=== PATIENT | male | born 1935 | race African-American/Black ===

== ENCOUNTER → 2016-12-12 | Outpatient (CLI) | payer MEDICARE ==
[~2016-12-12] MED LIST: ALLO300T42 PO; AMLO5TAB2 PO; ASPI-496 PO; CEFD300C37 PO; CLON0.1T PO; CLON0.1T12 PO; CLON0.3T47 PO; COLC0.6T37 PO; EZET10TA3 PO; FURO-93 PO; FURO40TA6; GABA400C PO; GLIP10TA20 PO; HYDR-3240 PO; LISI-468 PO; METF500T27 PO; METO-95 PO; METO50TA82 PO; OXYC1TAB7 PO; POLY17PO5 PO; POTA10TA31 PO; PRAV10TA2 PO; PRED10TA PO; PRED20TA PO; SPIR25TA3 PO; TAMS-11 PO; TERA5CAP3 PO; TRAM-28 PO
[2016-12-12 11:40] LABS: PATH.CAST-FLAG NOT PRESENT; SPERM-FLAG NOT PRESENT; SRC-FLAG NOT PRESENT; XTAL-FLAG NOT PRESENT; YLC-FLAG NOT PRESENT
[2016-12-12 11:48] LABS: BLOOD UREA NITROGEN 26 mg/dL (7-18)
[2016-12-12 11:53] LABS: ASPARTATE AMINO TRANSFERASE 15 U/L (15-37)
[2016-12-12 12:01] LABS: DIFF TOTAL CELLS COUNTED 100 CELL DIFF
[2016-12-12 12:06] LABS: ANISOCYTOSIS 1+; POIKILOCYTOSIS 1+; VERIFY COUNTS? YES
[2016-12-12 12:07] LABS: SPHEROCYTES 1+
== END | disposition home or self-care (01) ==
LOC: LAB 11:05
PROVIDERS: ATTEND Internal Medicine Nephrology
DX: I12.9 Hypertensive chronic kidney disease with stage 1 through stage 4 chronic kidney disease, or unspecified chronic kidney disease (principal); D63.1 Anemia in chronic kidney disease; N18.3 Chronic kidney disease, stage 3 (moderate); E87.2 Acidosis; E55.9 Vitamin D deficiency, unspecified; G47.30 Sleep apnea, unspecified; Q89.3 Situs inversus
CPT/HCPCS: 36415; 80053; 81001; 82306; 82570; 82728; 84100; 84156; 84550; 85025

== ENCOUNTER → 2017-07-08 | Outpatient (CLI) | payer MEDICARE ==
[~2017-07-08] MED LIST changes: -ALLO300T42 PO; +ALLO300T80 PO; +EZET10TA18 PO; -EZET10TA3 PO; +GLIP-164 PO; -GLIP10TA20 PO; +REGADENOSON 0.4 MG/5 ML SYRINGE ONE; -TRAM-28 PO; +TRAM-47 PO
== END | disposition home or self-care (01) ==
LOC: CVU 09:56
PROVIDERS: ATTEND Internal Medicine Cardiovascular Disease
DX: Z01.810 Encounter for preprocedural cardiovascular examination (principal)
CPT/HCPCS: 78452; 93017; 93306; A9502; J2785

== ENCOUNTER 2018-03-10 16:58 | Inpatient (IN) | payer MEDICARE ==
[~2018-03-10] VITALS: Ht 167.6 cm; Wt 157.2 kg
[~2018-03-10 16:58] MED LIST changes: -AMLO5TAB2 PO; +AMLO5TAB7 PO; -REGADENOSON 0.4 MG/5 ML SYRINGE ONE; -SPIR25TA3 PO; +SPIR25TA5 PO
[2018-03-10] MEDS ORDERED: SODIUM CHLORIDE FLUSH 10ML SYR IVF ONE (17:30)
[2018-03-10 18:52] LABS: PROTHROMBIN TIME 10.4 Seconds (9.6-11.5)
[2018-03-10 18:54] LABS: ALBUMIN 3.2 g/dL (3.4-5.0); ANION GAP 9 mmol/L (5-15); CALCIUM 7.6 mg/dL (8.5-10.1); CHLORIDE 103 mmol/L (98-107); MEAN CORPUSCULAR HEMOGLOBIN 30.1 pg (27.5-34.5); MEAN CORPUSCULAR HGB CONC 33.3 g/dL (33.2-36.2); MEAN CORPUSCULAR VOLUME 90.4 fL (81-97); MEAN PLATELET VOLUME 9.6 fL (7.4-10.4); PLATELET COUNT 197 x10^3/uL (130-400); RED BLOOD COUNT 3.48 x10^6/uL (4.38-5.82); RED CELL DISTRIBUTION WIDTH 17.7 % (9.4-14.8)
[2018-03-10 18:59] LABS: ALANINE AMINOTRANSFERASE 39 U/L (12-78); ALKALINE PHOSPHATASE 73 U/L (45-117); BILIRUBIN,TOTAL 0.7 mg/dL (0.2-1.0); TOTAL PROTEIN 6.9 g/dL (6.4-8.2); TROPONIN I 0.028 ng/mL (0.000-0.045)
[2018-03-10] MEDS ORDERED: ALLO300T PO (19:00)
[2018-03-10] MEDS ORDERED: FINA5TAB4 PO (19:00)
[2018-03-10] MEDS ORDERED: ASPI-496 PO (19:00)
[2018-03-10] MEDS ORDERED: CLON0.1T PO (19:00)
[2018-03-10] MEDS ORDERED: LOSA50TA7 PO (19:00)
[2018-03-10] MEDS ORDERED: PRAV80TA2 PO (19:00)
[2018-03-10] MEDS ORDERED: SODIUM BICARBONATE PO (19:00)
[2018-03-10] MEDS ORDERED: TERA5CAP3 PO (19:00)
[2018-03-10 19:08] LABS: MD YES
[2018-03-10 19:16] LABS: BAND#(MANUAL) 0.06 x10^3/uL; BANDS%(MANUAL) 1 % (0-7); BASOS#(MANUAL) 0.11 x10^3/uL (0-0.1); BASOS% (MANUAL) 2 % (0-1); LYMPH#(MANUAL) 1.03 x10^3/uL (1-3.4); LYMPHS% (MANUAL) 18 % (22-44); MONOS#(MANUAL) 0.29 x10^3/uL (0.3-2.7); MONOS% (MANUAL) 5 % (2-9); SEG#(MANUAL) 4.22 x10^3/uL (1.8-6.8); SEGS% (MANUAL) 74 % (42-75)
[2018-03-10 19:17] LABS: ANISOCYTOSIS 1+; HYPOCHROMIA 1+
[2018-03-10 19:18] LABS: <PLATELET ESTIMATE> ADEQUATE; <PLT MORPHOLOGY> NORMAL PLT MORPH; OVALOCYTES 1+; TARGET CELLS 1+
[2018-03-10] MEDS ORDERED: ACETAMINOPHEN 325 MG TABLET PO PRN (21:00)
[2018-03-10] MEDS ORDERED: ONDANSETRON ODT 4 MG PO PRN (21:00)
[2018-03-10] MEDS ORDERED: DOCUSATE 100 MG CAPSULE PO PRN (21:00)
[2018-03-10] MEDS ORDERED: hydrALAzine 20 MG/ML, 1ML IVPush PRN (21:00)
[2018-03-10] MEDS ORDERED: TEMAZEPAM 15 MG CAPSULE PO PRN (21:00)
[2018-03-10 21:21] LABS: FREE T4 (FREE THYROXINE) 0.91 ng/dL (0.76-1.46); THYROID STIMULATING HORMONE 6.79 mIU/L (0.358-3.740)
[2018-03-10 21:54] LABS: HEMOGLOBIN A1C 5.6 % (4.2-6.3)
[2018-03-10 22:24] VITALS: BP 158/92
[2018-03-10] MEDS: SODIUM CHLORIDE 0.9% 1,000 ML IV SCH (22:43)
[2018-03-10] MEDS: PRAVASTATIN 40 MG TABLET PO SCH (22:43)
[2018-03-10] MEDS: SODIUM BICARBONATE 650 MG TABLET PO SCH (22:43)
[2018-03-11] VITALS (7 sets, daily range): BP systolic 101–164; BP diastolic 42–84
[2018-03-11] MEDS ORDERED: MAGNESIUM SULFATE PMX 2GM/50ML 50 ML IV ONE (01:00)
[2018-03-11 01:11] LABS: TROPONIN I 0.035 ng/mL (0.000-0.045)
[2018-03-11] MEDS ORDERED: ASPIRIN 81 MG TABLET EC PO SCH (06:00)
[2018-03-11 06:38] LABS: MEAN CORPUSCULAR HEMOGLOBIN 29.4 pg (27.5-34.5); MEAN CORPUSCULAR HGB CONC 32.5 g/dL (33.2-36.2); MEAN CORPUSCULAR VOLUME 90.4 fL (81-97); MEAN PLATELET VOLUME 8.9 fL (7.4-10.4); PLATELET COUNT 181 x10^3/uL (130-400); RED BLOOD COUNT 3.13 x10^6/uL (4.38-5.82); RED CELL DISTRIBUTION WIDTH 17.8 % (9.4-14.8)
[2018-03-11 06:47] LABS: ANION GAP 8 mmol/L (5-15); CALCIUM 7.4 mg/dL (8.5-10.1); CHLORIDE 105 mmol/L (98-107); CREATININE 2.69 mg/dL (0.7-1.3)
[2018-03-11 07:01] LABS: TROPONIN I 0.045 ng/mL (0.000-0.045)
[2018-03-11 08:19] LABS: MD YES
[2018-03-11] MEDS ORDERED: LOSARTAN 50MG TABLET PO SCH (09:00)
[2018-03-11] MEDS ORDERED: ALLOPURINOL 300 MG TABLET PO SCH (09:00)
[2018-03-11 09:02] LABS: SEG#(MANUAL) 4.48 x10^3/uL (1.8-6.8); SEGS% (MANUAL) 83 % (42-75)
[2018-03-11 09:03] LABS: BAND#(MANUAL) 0.05 x10^3/uL; BANDS%(MANUAL) 1 % (0-7)
[2018-03-11 09:07] LABS: EOS#(MANUAL) 0.05 x10^3/uL (0.0-0.4); EOS% (MANUAL) 1 % (1-7); LYMPH#(MANUAL) 0.76 x10^3/uL (1-3.4); LYMPHS% (MANUAL) 14 % (22-44); METAMYELOCYTES# (MANUAL) 0.05 x10^3/uL (0-0); METAMYELOCYTES% (MANUAL) 1 % (0-1)
[2018-03-11 09:08] LABS: <PLATELET ESTIMATE> ADEQUATE; <PLT MORPHOLOGY> NORMAL PLT MORPH; ANISOCYTOSIS 1+; HYPOCHROMIA 1+; POLYCHROMASIA 1+
[2018-03-11] MEDS: FINASTERIDE 5 MG TABLET PO SCH (09:49)
[2018-03-11] MEDS: SODIUM BICARBONATE 650 MG TABLET PO SCH ×2 (09:49→20:21)
[2018-03-11] MEDS: TERAZOSIN 5MG CAPSULE PO SCH (09:50)
[2018-03-11] MEDS ORDERED: PHARMACY MAY ADJ FOR RENAL FX MC PRN (10:30)
[2018-03-11] MEDS: INSULIN LISPRO 100 UNITS/ML, PEN SQ-INSULIN SCH ×3 (11:00→20:22)
[2018-03-11] MEDS: HEPARIN 5,000 UNITS/ML, 1ML SQ SCH ×2 (11:13→17:14)
[2018-03-11 11:18] LABS: HEMOGLOBIN A1C 5.8 % (4.2-6.3)
[2018-03-11] MEDS: SODIUM CHLORIDE 0.9% 1,000 ML IV SCH (13:32)
[2018-03-11 14:16] LABS: MICROSCOPIC AUTO
[2018-03-11 14:32] LABS: CULTURE INDICATED? NO
[2018-03-11] MEDS: PRAVASTATIN 40 MG TABLET PO SCH (20:21)
[2018-03-12 00:23] VITALS: BP 143/75
[2018-03-12] MEDS: HEPARIN 5,000 UNITS/ML, 1ML SQ SCH ×2 (00:24→11:44)
[2018-03-12] MEDS: SODIUM CHLORIDE 0.9% 1,000 ML IV SCH (00:25)
[2018-03-12] MEDS ORDERED: ASPIRIN 81 MG TABLET EC PO SCH (06:00)
[2018-03-12 06:10] LABS: ANION GAP 10 mmol/L (5-15); CHLORIDE 107 mmol/L (98-107)
[2018-03-12 06:15] LABS: CHOL/HDL RATIO 1.4; CHOLESTEROL, TOTAL 180 mg/dL (140-239); CREATININE 2.27 mg/dL (0.7-1.3); HDL CHOL % 74 % (26-37); HDL CHOLESTEROL (DIRECT) 133 mg/dL (40-60); LDL CHOLESTEROL,CALCULATED 33 mg/dL (54-169); LDL/HDL RATIO 0.2 (0.5-3.0); TRIGLYCERIDES 72 mg/dL (50-200); VLDL CHOLESTEROL 14 mg/dL (0-25)
[2018-03-12 06:21] LABS: MEAN CORPUSCULAR HEMOGLOBIN 29.5 pg (27.5-34.5); MEAN CORPUSCULAR HGB CONC 32.6 g/dL (33.2-36.2); MEAN CORPUSCULAR VOLUME 90.4 fL (81-97); MEAN PLATELET VOLUME 10.2 fL (7.4-10.4); PLATELET COUNT 177 x10^3/uL (130-400); RED BLOOD COUNT 3.26 x10^6/uL (4.38-5.82); RED CELL DISTRIBUTION WIDTH 18.2 % (9.4-14.8)
[2018-03-12] MEDS: INSULIN LISPRO 100 UNITS/ML, PEN SQ-INSULIN SCH ×2 (07:00→11:00)
[2018-03-12 07:26] VITALS: BP 168/85
[2018-03-12 07:57] LABS: MD YES
[2018-03-12 08:15] LABS: ANISOCYTOSIS 1+; EOS#(MANUAL) 0.08 x10^3/uL (0.0-0.4); EOS% (MANUAL) 2 % (1-7); LYMPH#(MANUAL) 1.64 x10^3/uL (1-3.4); LYMPHS% (MANUAL) 40 % (22-44); MONOS#(MANUAL) 0.25 x10^3/uL (0.3-2.7); MONOS% (MANUAL) 6 % (2-9); OVALOCYTES 1+; SEG#(MANUAL) 2.13 x10^3/uL (1.8-6.8); SEGS% (MANUAL) 52 % (42-75)
[2018-03-12 08:16] LABS: <PLATELET ESTIMATE> ADEQUATE; <PLT MORPHOLOGY> NORMAL PLT MORPH; TARGET CELLS 1+
[2018-03-12] MEDS: SODIUM BICARBONATE 650 MG TABLET PO SCH (08:30)
[2018-03-12] MEDS: FINASTERIDE 5 MG TABLET PO SCH (08:30)
[2018-03-12] MEDS: TERAZOSIN 5MG CAPSULE PO SCH (08:30)
[2018-03-12 10:15] VITALS: BP 129/74
[2018-03-12] MEDS ORDERED: GLIP5TAB22 PO (12:38)
[2018-03-12] MEDS ORDERED: ASPI-621 PO (12:38)
[2018-03-12 13:28] VITALS: BP 122/67
== END 2018-03-12 15:24 | disposition home or self-care (01) | DRG 73 ==
LOC: EDBD 16:58 → ED 20:27 → EDIP 20:31 → 4WST 21:55 → DCLOUNGE 03-12 15:15
PROVIDERS: ADMIT Hospitalist; ATTEND Hospitalist
DX: G90.8 Other disorders of autonomic nervous system (principal); N17.0 Acute kidney failure with tubular necrosis; I13.0 Hypertensive heart and chronic kidney disease with heart failure and stage 1 through stage 4 chronic kidney disease, or unspecified chronic kidney disease; Z68.43 Body mass index [BMI] 50.0-59.9, adult; E11.43 Type 2 diabetes mellitus with diabetic autonomic (poly)neuropathy; E11.21 Type 2 diabetes mellitus with diabetic nephropathy; E11.22 Type 2 diabetes mellitus with diabetic chronic kidney disease; E11.69 Type 2 diabetes mellitus with other specified complication; E66.01 Morbid (severe) obesity due to excess calories; E78.5 Hyperlipidemia, unspecified; E83.42 Hypomagnesemia; I48.91 Unspecified atrial fibrillation; I50.9 Heart failure, unspecified; N18.9 Chronic kidney disease, unspecified; N40.0 Benign prostatic hyperplasia without lower urinary tract symptoms; Z96.659 Presence of unspecified artificial knee joint; D64.9 Anemia, unspecified; Z86.73 Personal history of transient ischemic attack (TIA), and cerebral infarction without residual deficits; Z83.3 Family history of diabetes mellitus
CPT/HCPCS: 36415; 70450; 70551; 71045; 80048; 80053; 80061; 81001; 82962; 83036; 83735; 84439; 84443; 84484; 85025; 85610; 85730; 93005; 93306; 93880; 99285; G0378; J1644; J1815; J3475; J7030

== ENCOUNTER 2018-03-31 14:01 | Inpatient (IN) | payer MEDICARE ==
[~2018-03-31] VITALS: Ht 167.6 cm; Wt 136.7 kg
[~2018-03-31 14:01] MED LIST changes: +ALLO300T PO; +ASPI-621 PO; +FINA5TAB4 PO; +GLIP5TAB22 PO; +LOSA50TA7 PO; +PRAV80TA2 PO; +SODIUM BICARBONATE PO
[2018-03-31] MEDS ORDERED: DEXTROSE 50%, 50ML SYRINGE IVPush ONE (14:30)
[2018-03-31] MEDS ORDERED: DEXTROSE 50%, 50ML SYRINGE ONE (14:33)
[2018-03-31 14:55] LABS: CREATININE 2.59 mg/dL (0.7-1.3)
[2018-03-31 14:56] LABS: ALANINE AMINOTRANSFERASE 30 U/L (12-78); ALKALINE PHOSPHATASE 71 U/L (45-117); BILIRUBIN,TOTAL 0.4 mg/dL (0.2-1.0); TOTAL PROTEIN 8.2 g/dL (6.4-8.2)
[2018-03-31 15:01] LABS: ALBUMIN 3.6 g/dL (3.4-5.0); ANION GAP 11 mmol/L (5-15); CALCIUM 8.6 mg/dL (8.5-10.1); CHLORIDE 106 mmol/L (98-107)
[2018-03-31 15:11] LABS: MEAN CORPUSCULAR HEMOGLOBIN 29.5 pg (27.5-34.5); MEAN CORPUSCULAR HGB CONC 32.4 g/dL (33.2-36.2); MEAN PLATELET VOLUME 9.5 fL (7.4-10.4); PLATELET COUNT 307 x10^3/uL (130-400); RED BLOOD COUNT 3.98 x10^6/uL (4.38-5.82)
[2018-03-31] MEDS ORDERED: AMLO10TA6 PO (15:27)
[2018-03-31] MEDS ORDERED: FURO20TA3 PO (15:28)
[2018-03-31 15:55] LABS: MD YES
[2018-03-31 15:58] LABS: BAND#(MANUAL) 0.25 x10^3/uL; BANDS%(MANUAL) 3 % (0-7); LYMPHS% (MANUAL) 6 % (22-44); MONOS#(MANUAL) 0.59 x10^3/uL (0.3-2.7); MONOS% (MANUAL) 7 % (2-9); SEG#(MANUAL) 7.06 x10^3/uL (1.8-6.8); SEGS% (MANUAL) 84 % (42-75)
[2018-03-31 15:59] LABS: ANISOCYTOSIS 1+
[2018-03-31 16:00] LABS: OVALOCYTES 1+
[2018-03-31 16:01] LABS: <PLATELET ESTIMATE> ADEQUATE; <PLT MORPHOLOGY> NORMAL PLT MORPH
[2018-03-31] MEDS: DEXTROSE 10% 1,000 ML IV SCH ×2 (16:21→22:37)
[2018-03-31] MEDS ORDERED: SODIUM CHLORIDE 0.9% 1,000 ML IV SCH (16:23)
[2018-03-31] MEDS ORDERED: ONDANSETRON ODT 4 MG PO PRN (16:30)
[2018-03-31] MEDS ORDERED: ONDANSETRON 2MG/ML, 2ML IVPush PRN (16:30)
[2018-03-31] MEDS ORDERED: BISACODYL 10 MG SUPP PR PRN (16:30)
[2018-03-31] MEDS ORDERED: LABETALOL 5MG/ML, 20ML IVPush PRN (16:30)
[2018-03-31] MEDS ORDERED: hydrALAzine 20 MG/ML, 1ML IVPush PRN (16:30)
[2018-03-31] MEDS ORDERED: DOCUSATE 100 MG CAPSULE PO PRN (16:30)
[2018-03-31] MEDS ORDERED: DEXTROSE 4 GM TAB.CHEW PO PRN (16:30)
[2018-03-31] MEDS ORDERED: DEXTROSE 50%, 50ML SYRINGE IVPush PRN (16:30)
[2018-03-31] MEDS ORDERED: POLYETHYLENE GLYCOL 17 GM PACKET PO PRN (16:30)
[2018-03-31] MEDS ORDERED: GLUCAGON 1 MG IM PRN (16:30)
[2018-03-31] MEDS ORDERED: DEXTROSE 10% 1,000 ML IV SCH (17:00)
[2018-03-31 17:06] LABS: HEMOGLOBIN A1C 5.7 % (4.2-6.3)
[2018-03-31] MEDS: HEPARIN 5,000 UNITS/ML, 1ML SQ SCH (17:42)
[2018-03-31 17:45] VITALS: BP 143/66
[2018-03-31 19:24] VITALS: BP 105/69
[2018-03-31] MEDS: INSULIN LISPRO 100 UNITS/ML, PEN SQ-INSULIN SCH (21:00)
[2018-03-31] MEDS: SODIUM CHLORIDE FLUSH 10ML SYR IVF SCH (21:52)
[2018-04-01] MEDS: HEPARIN 5,000 UNITS/ML, 1ML SQ SCH ×3 (00:45→16:08)
[2018-04-01 01:25] VITALS: BP 135/78
[2018-04-01 05:12] LABS: MEAN CORPUSCULAR HEMOGLOBIN 29.9 pg (27.5-34.5); MEAN CORPUSCULAR HGB CONC 32.7 g/dL (33.2-36.2); MEAN CORPUSCULAR VOLUME 91.5 fL (81-97); MEAN PLATELET VOLUME 9.3 fL (7.4-10.4); PLATELET COUNT 244 x10^3/uL (130-400); RED BLOOD COUNT 3.21 x10^6/uL (4.38-5.82); RED CELL DISTRIBUTION WIDTH 18.6 % (9.4-14.8)
[2018-04-01 05:19] LABS: CHLORIDE 107 mmol/L (98-107)
[2018-04-01 05:24] LABS: ANION GAP 7 mmol/L (5-15); CALCIUM 7.8 mg/dL (8.5-10.1); CREATININE 2.57 mg/dL (0.7-1.3)
[2018-04-01 05:55] LABS: MD YES
[2018-04-01 05:56] LABS: EOS#(MANUAL) 0.12 x10^3/uL (0.0-0.4); EOS% (MANUAL) 2 % (1-7); LYMPH#(MANUAL) 1.24 x10^3/uL (1-3.4); LYMPHS% (MANUAL) 20 % (22-44); MONOS#(MANUAL) 0.43 x10^3/uL (0.3-2.7); MONOS% (MANUAL) 7 % (2-9); SEGS% (MANUAL) 71 % (42-75)
[2018-04-01 05:59] LABS: ANISOCYTOSIS 1+; HYPOCHROMIA 1+; OVALOCYTES 1+
[2018-04-01 06:01] LABS: <PLATELET ESTIMATE> ADEQUATE; <PLT MORPHOLOGY> NORMAL PLT MORPH
[2018-04-01] MEDS: ASPIRIN 81 MG TABLET EC PO SCH (06:36)
[2018-04-01] MEDS: INSULIN LISPRO 100 UNITS/ML, PEN SQ-INSULIN SCH ×4 (07:00→20:28)
[2018-04-01 07:20] VITALS: BP 150/79
[2018-04-01] MEDS: PRAVASTATIN 40 MG TABLET PO SCH (08:10)
[2018-04-01] MEDS: AMLODIPINE 10 MG TAB PO SCH (08:10)
[2018-04-01] MEDS: TERAZOSIN 5MG CAPSULE PO SCH (08:10)
[2018-04-01] MEDS: ALLOPURINOL 300 MG TABLET PO SCH (08:10)
[2018-04-01] MEDS: FINASTERIDE 5 MG TABLET PO SCH (08:10)
[2018-04-01] MEDS: SODIUM CHLORIDE FLUSH 10ML SYR IVF SCH ×2 (08:10→20:34)
[2018-04-01] MEDS: D5%-0.9% NACL 500 ML IV SCH (12:30)
[2018-04-01 13:00] VITALS: BP 138/65
[2018-04-01 13:09] VITALS: BP 103/64
[2018-04-01 18:32] VITALS: BP 143/82
[2018-04-01] MEDS: ACETAMINOPHEN 325 MG TABLET PO PRN (20:42)
[2018-04-02] MEDS: HEPARIN 5,000 UNITS/ML, 1ML SQ SCH ×3 (00:20→16:30)
[2018-04-02 01:00] VITALS: BP 152/68
[2018-04-02] MEDS: CARVEDILOL 3.125 MG TABLET PO SCH (05:20)
[2018-04-02] MEDS: ASPIRIN 81 MG TABLET EC PO SCH (05:20)
[2018-04-02 05:25] LABS: MEAN CORPUSCULAR HEMOGLOBIN 30.4 pg (27.5-34.5); MEAN CORPUSCULAR HGB CONC 33.1 g/dL (33.2-36.2); MEAN CORPUSCULAR VOLUME 91.7 fL (81-97); MEAN PLATELET VOLUME 9.8 fL (7.4-10.4); PLATELET COUNT 238 x10^3/uL (130-400); RED BLOOD COUNT 3.11 x10^6/uL (4.38-5.82); RED CELL DISTRIBUTION WIDTH 18.2 % (9.4-14.8)
[2018-04-02 05:31] LABS: ALBUMIN 2.6 g/dL (3.4-5.0); ANION GAP 9 mmol/L (5-15); CHLORIDE 110 mmol/L (98-107)
[2018-04-02 05:36] LABS: ALANINE AMINOTRANSFERASE 21 U/L (12-78); ALKALINE PHOSPHATASE 45 U/L (45-117); BILIRUBIN,TOTAL 0.5 mg/dL (0.2-1.0); CREATININE 2.29 mg/dL (0.7-1.3); TOTAL PROTEIN 6.2 g/dL (6.4-8.2)
[2018-04-02 05:58] LABS: MD YES
[2018-04-02 06:00] LABS: ANISOCYTOSIS 1+; EOS#(MANUAL) 0.05 x10^3/uL (0.0-0.4); EOS% (MANUAL) 1 % (1-7); HYPOCHROMIA 1+; LYMPHS% (MANUAL) 27 % (22-44); MONOS#(MANUAL) 0.29 x10^3/uL (0.3-2.7); MONOS% (MANUAL) 6 % (2-9); OVALOCYTES 1+; SEG#(MANUAL) 3.17 x10^3/uL (1.8-6.8); SEGS% (MANUAL) 66 % (42-75)
[2018-04-02 06:01] LABS: <PLATELET ESTIMATE> ADEQUATE; <PLT MORPHOLOGY> NORMAL PLT MORPH; TARGET CELLS 1+
[2018-04-02] MEDS: INSULIN LISPRO 100 UNITS/ML, PEN SQ-INSULIN SCH ×4 (07:00→20:57)
[2018-04-02] MEDS: D5%-0.9% NACL 500 ML IV SCH (07:00)
[2018-04-02] MEDS: SODIUM CHLORIDE FLUSH 10ML SYR IVF SCH ×2 (07:57→20:57)
[2018-04-02 09:49] VITALS: BP 149/69
[2018-04-02] MEDS: FINASTERIDE 5 MG TABLET PO SCH (10:06)
[2018-04-02] MEDS: TERAZOSIN 5MG CAPSULE PO SCH (10:06)
[2018-04-02] MEDS: AMLODIPINE 10 MG TAB PO SCH (10:06)
[2018-04-02] MEDS: PRAVASTATIN 40 MG TABLET PO SCH (10:06)
[2018-04-02] MEDS: ALLOPURINOL 300 MG TABLET PO SCH (10:06)
[2018-04-02 15:29] VITALS: BP 176/85
[2018-04-02 15:40] LABS: IRON LEVEL 109 mcg/dL (65-175)
[2018-04-02 15:42] LABS: % IRON SATURATION 54 % (20-55); TOTAL IRON BINDING CAPACITY 203 mcg/dL (250-450)
[2018-04-02 18:24] VITALS: BP 152/84
[2018-04-02] MEDS: ACETAMINOPHEN 325 MG TABLET PO PRN (23:02)
[2018-04-03] MEDS: HEPARIN 5,000 UNITS/ML, 1ML SQ SCH ×2 (00:09→08:30)
[2018-04-03 00:31] VITALS: BP 149/83
[2018-04-03] MEDS: ASPIRIN 81 MG TABLET EC PO SCH (05:37)
[2018-04-03] MEDS: CARVEDILOL 3.125 MG TABLET PO SCH (05:37)
[2018-04-03] MEDS: INSULIN LISPRO 100 UNITS/ML, PEN SQ-INSULIN SCH (06:42)
[2018-04-03 08:25] VITALS: BP 187/75
[2018-04-03] MEDS: SODIUM CHLORIDE FLUSH 10ML SYR IVF SCH (09:00)
[2018-04-03] MEDS: AMLODIPINE 10 MG TAB PO SCH (10:09)
[2018-04-03] MEDS: FINASTERIDE 5 MG TABLET PO SCH (10:09)
[2018-04-03] MEDS: ALLOPURINOL 300 MG TABLET PO SCH (10:09)
[2018-04-03] MEDS: PRAVASTATIN 40 MG TABLET PO SCH (10:09)
[2018-04-03] MEDS: TERAZOSIN 5MG CAPSULE PO SCH (10:09)
[2018-04-03] MEDS ORDERED: CARV3.12 PO (15:44)
[2018-04-03] MEDS ORDERED: AMLO5TAB4 PO (15:49)
== END 2018-04-03 11:10 | disposition home or self-care (01) | DRG 638 ==
LOC: ED 14:23 → EDIP 15:49 → INTOOBSV 15:49 → 3NE 16:42 → OBSVTOIN 04-02 14:51 → DCLOUNGE 04-03 10:52
PROVIDERS: ADMIT Family Medicine; ATTEND Family Medicine
DX: E11.649 Type 2 diabetes mellitus with hypoglycemia without coma (principal); I13.0 Hypertensive heart and chronic kidney disease with heart failure and stage 1 through stage 4 chronic kidney disease, or unspecified chronic kidney disease; Q24.0 Dextrocardia; Z68.43 Body mass index [BMI] 50.0-59.9, adult; E44.0 Moderate protein-calorie malnutrition; I50.30 Unspecified diastolic (congestive) heart failure; I48.2 Chronic atrial fibrillation; N18.4 Chronic kidney disease, stage 4 (severe); E11.22 Type 2 diabetes mellitus with diabetic chronic kidney disease; E78.5 Hyperlipidemia, unspecified; M10.9 Gout, unspecified; N40.0 Benign prostatic hyperplasia without lower urinary tract symptoms; Z86.73 Personal history of transient ischemic attack (TIA), and cerebral infarction without residual deficits; E66.01 Morbid (severe) obesity due to excess calories; D50.9 Iron deficiency anemia, unspecified; Z91.19 Patient's noncompliance with other medical treatment and regimen; Z79.84 Long term (current) use of oral hypoglycemic drugs; Z96.659 Presence of unspecified artificial knee joint; Z83.3 Family history of diabetes mellitus
CPT/HCPCS: 36415; 80048; 80053; 82962; 83036; 83540; 83550; 85025; 93005; 96374; 99285; G0378; J1644; J7042

== ENCOUNTER 2018-04-14 10:55 | Day surgery (SDC) | payer MEDICARE ==
[~2018-04-14] VITALS: Ht 167.6 cm; Wt 146.8 kg
[~2018-04-14 10:55] MED LIST changes: +AMLO10TA6 PO; +AMLO5TAB4 PO; +CARV3.12 PO; +FURO20TA3 PO
[2018-04-14] MEDS ORDERED: LIDOCAINE/PF 1%, 30ML ONE (11:51)
== END 2018-04-14 12:00 | disposition home or self-care (01) ==
LOC: CACL 10:55
PROVIDERS: ATTEND Internal Medicine Cardiovascular Disease
DX: Z45.09 Encounter for adjustment and management of other cardiac device (principal); I63.9 Cerebral infarction, unspecified; I12.9 Hypertensive chronic kidney disease with stage 1 through stage 4 chronic kidney disease, or unspecified chronic kidney disease; E11.22 Type 2 diabetes mellitus with diabetic chronic kidney disease; N18.9 Chronic kidney disease, unspecified; E78.2 Mixed hyperlipidemia; G47.33 Obstructive sleep apnea (adult) (pediatric); E66.01 Morbid (severe) obesity due to excess calories; Z79.82 Long term (current) use of aspirin; Z79.899 Other long term (current) drug therapy
CPT/HCPCS: 33282; C1764; J3490

== ENCOUNTER 2018-07-20 10:58 | Inpatient (IN) | payer MEDICARE ==
[~2018-07-20] VITALS: Ht 167.6 cm; Wt 138.4 kg
[~2018-07-20 10:58] MED LIST changes: +AMLO-150 PO; -AMLO10TA6 PO; +AMLO10TA8 PO; -AMLO5TAB7 PO; -ASPI-621 PO; +ASPI81TA45 PO; -CLON0.1T PO; +CLON0.1T22 PO; -GLIP-164 PO; +GLIP10TA24 PO; +LOSA50TA14 PO; -LOSA50TA7 PO
[2018-07-20] MEDS ORDERED: ACETAMINOPHEN 500 MG TABLET PO ONE (13:30)
[2018-07-20] MEDS ORDERED: DIPH,PERTUSS(ACELL),TET VAC/PF 0.5 ML IM-VACC ONE ×2 (13:30→14:45)
[2018-07-20 13:37] LABS: MEAN CORPUSCULAR HEMOGLOBIN 30.7 pg (27.5-34.5); MEAN CORPUSCULAR HGB CONC 32.9 g/dL (33.2-36.2); MEAN CORPUSCULAR VOLUME 93.5 fL (81-97); MEAN PLATELET VOLUME 9.6 fL (7.4-10.4); PLATELET COUNT 242 x10^3/uL (130-400); RED BLOOD COUNT 3.22 x10^6/uL (4.38-5.82); RED CELL DISTRIBUTION WIDTH 19.5 % (9.4-14.8)
[2018-07-20 13:43] LABS: MD YES
[2018-07-20 13:44] LABS: INTERNATIONAL NORMALIZED RATIO 0.98 (0.93-1.1); PROTHROMBIN TIME 10.4 Seconds (9.6-11.5)
--- NOTE | 2018-07-20 13:44 | NUR ---
ASSUMED CARE OF PT. PT PRESENTS TO ED WITH C/O RASH AROUND GROIN AREA AND BUTTOCK WITH SOME BLEEDING. PT ALSO HERE FOR MULTIPLE FALLS RECENTLY. DENIES PAIN AND LOC. ALSO DENIES HITTING HEAD. MILD AMOUNT OF DISTRESS NOTED. BREATHING REGULAR AND UNLABORED. WILL CONTINUE TO MONITOR.
[2018-07-20 13:45] LABS: ALANINE AMINOTRANSFERASE 102 U/L (12-78); ALBUMIN 3.2 g/dL (3.4-5.0); ANION GAP 13 mmol/L (5-15); CHLORIDE 107 mmol/L (98-107); CREATININE 3.99 mg/dL (0.7-1.3)
[2018-07-20 13:47] LABS: ALKALINE PHOSPHATASE 115 U/L (45-117); BILIRUBIN,TOTAL 0.6 mg/dL (0.2-1.0)
[2018-07-20 13:52] LABS: BAND#(MANUAL) 0.05 x10^3/uL; BANDS%(MANUAL) 1 % (0-7); EOS#(MANUAL) 0.09 x10^3/uL (0.0-0.4); EOS% (MANUAL) 2 % (1-7); LYMPH#(MANUAL) 0.51 x10^3/uL (1-3.4); LYMPHS% (MANUAL) 11 % (22-44); MONOS% (MANUAL) 13 % (2-9); SEG#(MANUAL) 3.36 x10^3/uL (1.8-6.8); SEGS% (MANUAL) 73 % (42-75)
[2018-07-20 13:53] LABS: <PLATELET ESTIMATE> ADEQUATE; <PLT MORPHOLOGY> NORMAL PLT MORPH; ANISOCYTOSIS 1+; HYPOCHROMIA 1+; OVALOCYTES 1+; TARGET CELLS 1+
[2018-07-20] MEDS ORDERED: SODIUM CHLORIDE 0.9%, 500ML IVBOLUS ONE (14:30)
[2018-07-20] MEDS ORDERED: ACETAMINOPHEN 500 MG TABLET ONE (14:44)
--- NOTE | 2018-07-20 14:50 | NUR ---
PT MEDICATED PER AUG. 5 RIGHTS VERIFIED PRIOR. 3 P'S ADDRESSED.
--- NOTE | 2018-07-20 15:12 | NUR ---
ATTEMPTED TO START IV. UNABLE TO START AT THIS TIME.
--- NOTE | 2018-07-20 15:29 | NUR ---
IV started. No other needs at this time.
--- NOTE | 2018-07-20 15:38 | NUR ---
IV STARTED BY PRAMOD MARIE. IVF STARTED PER MAR. 5 RIGHTS VERIFIED PRIOR. 3 P'S ADDRESSED.
[2018-07-20] MEDS ORDERED: ONDANSETRON 2MG/ML, 2ML IVPush PRN (16:00)
[2018-07-20] MEDS: NYSTATIN TOPICAL POWDER 15GM TP SCH ×3 (16:00→21:40)
[2018-07-20] MEDS ORDERED: LORazepam 2 MG/ML, 1ML IVPush PRN (16:00)
[2018-07-20] MEDS: INSULIN LISPRO 100 UNITS/ML, PEN SQ-INSULIN SCH ×2 (16:00→21:00)
[2018-07-20] MEDS ORDERED: LORazepam 1MG TABLET PO PRN (16:00)
[2018-07-20] MEDS ORDERED: ONDANSETRON ODT 4 MG PO PRN (16:00)
[2018-07-20 16:23] LABS: HEMOGLOBIN A1C 5.5 % (4.2-6.3)
--- NOTE | 2018-07-20 16:45 | NUR ---
PT CLEANED AFTER HAVING BM. SHEET CHANGED. POC UPDATED WITH PT AND FAMILY.
--- NOTE | 2018-07-20 17:40 | NUR ---
REPORT TO PRAMOD GARRETT.
--- NOTE | 2018-07-20 17:45 | NUR ---
PT PLACED ON BED LUIS.
[2018-07-20 18:25] VITALS: BP 128/80
[2018-07-20 20:33] LABS: MICROSCOPIC NOT IND
[2018-07-20 20:38] LABS: CULTURE INDICATED? NO
[2018-07-20] MEDS: SODIUM CHLORIDE 0.9% 1,000 ML IV SCH (20:41)
[2018-07-20 21:38] LABS: CLOSTRIDIUM DIFFICILE ANTIGEN NEGATIVE; CLOSTRIDIUM DIFFICILE TOXIN NEGATIVE (Negative)
[2018-07-20] MEDS: AMLODIPINE 5 MG TABLET PO SCH (21:40)
[2018-07-20] MEDS: CARVEDILOL 3.125 MG TABLET PO SCH (21:40)
[2018-07-20] MEDS: HEPARIN 5,000 UNITS/ML, 1ML SQ SCH (21:40)
[2018-07-20] MEDS: SODIUM BICARBONATE 650 MG TABLET PO SCH (21:40)
[2018-07-21 01:56] VITALS: BP 134/71
[2018-07-21 05:38] LABS: MEAN CORPUSCULAR HEMOGLOBIN 30.8 pg (27.5-34.5); MEAN CORPUSCULAR VOLUME 93.5 fL (81-97); MEAN PLATELET VOLUME 9.5 fL (7.4-10.4); PLATELET COUNT 203 x10^3/uL (130-400); RED BLOOD COUNT 2.78 x10^6/uL (4.38-5.82); RED CELL DISTRIBUTION WIDTH 19.5 % (9.4-14.8)
[2018-07-21 05:45] LABS: ALBUMIN 2.6 g/dL (3.4-5.0); ANION GAP 12 mmol/L (5-15); CALCIUM 8.2 mg/dL (8.5-10.1); CHLORIDE 112 mmol/L (98-107)
[2018-07-21 05:58] LABS: ALANINE AMINOTRANSFERASE 80 U/L (12-78); ALKALINE PHOSPHATASE 91 U/L (45-117); BILIRUBIN,TOTAL 0.6 mg/dL (0.2-1.0); CREATININE 3.11 mg/dL (0.7-1.3); TOTAL PROTEIN 5.7 g/dL (6.4-8.2)
[2018-07-21] MEDS: HEPARIN 5,000 UNITS/ML, 1ML SQ SCH ×3 (06:21→22:17)
[2018-07-21] MEDS: NYSTATIN TOPICAL POWDER 15GM TP SCH ×6 (06:22→20:02)
[2018-07-21 06:43] LABS: MD YES
[2018-07-21 06:49] LABS: EOS#(MANUAL) 0.08 x10^3/uL (0.0-0.4); EOS% (MANUAL) 2 % (1-7); LYMPHS% (MANUAL) 17 % (22-44); MONOS#(MANUAL) 0.37 x10^3/uL (0.3-2.7); MONOS% (MANUAL) 9 % (2-9); SEG#(MANUAL) 2.95 x10^3/uL (1.8-6.8); SEGS% (MANUAL) 72 % (42-75)
[2018-07-21 06:51] LABS: ANISOCYTOSIS 1+; MICROCYTOSIS 1+; TARGET CELLS 1+
[2018-07-21 06:53] LABS: <PLATELET ESTIMATE> ADEQUATE; <PLT MORPHOLOGY> NORMAL PLT MORPH; HYPOCHROMIA 2+
[2018-07-21] MEDS: INSULIN LISPRO 100 UNITS/ML, PEN SQ-INSULIN SCH ×4 (07:00→21:00)
[2018-07-21] MEDS ORDERED: MAGNESIUM SULFATE PMX 2GM/50ML 50 ML IV ONE (07:30)
[2018-07-21 07:31] VITALS: BP 132/79
[2018-07-21] MEDS: SODIUM CHLORIDE 0.9% 1,000 ML IV SCH (09:00)
[2018-07-21] MEDS: MULTIVITAMIN 1 TABLET PO SCH (09:00)
[2018-07-21] MEDS: FINASTERIDE 5 MG TABLET PO SCH (09:18)
[2018-07-21] MEDS: CARVEDILOL 3.125 MG TABLET PO SCH ×2 (09:18→20:01)
[2018-07-21] MEDS: TERAZOSIN 5MG CAPSULE PO SCH (09:18)
[2018-07-21] MEDS: PRAVASTATIN 40 MG TABLET PO SCH (09:18)
[2018-07-21] MEDS: SODIUM BICARBONATE 650 MG TABLET PO SCH ×2 (09:19→20:01)
[2018-07-21] MEDS: AMLODIPINE 5 MG TABLET PO SCH ×2 (09:19→20:00)
[2018-07-21] MEDS: THIAMINE 100MG TABLET PO SCH (09:19)
[2018-07-21] MEDS: FOLIC ACID 1 MG TABLET PO SCH (09:19)
[2018-07-21] MEDS ORDERED: PHARMACY MAY ADJ FOR RENAL FX MC PRN (11:30)
[2018-07-21 15:01] VITALS: BP 133/76
[2018-07-21 19:52] VITALS: BP 136/78
[2018-07-21] MEDS: ASPIRIN 81 MG TABLET CHEW PO SCH (20:00)
[2018-07-22 00:15] VITALS: BP 143/79
[2018-07-22] MEDS: SODIUM CHLORIDE 0.9% 1,000 ML IV SCH ×2 (02:18→16:15)
[2018-07-22] MEDS: NYSTATIN TOPICAL POWDER 15GM TP SCH ×5 (05:40→21:54)
[2018-07-22] MEDS: HEPARIN 5,000 UNITS/ML, 1ML SQ SCH ×3 (05:40→21:57)
[2018-07-22 05:44] LABS: MEAN CORPUSCULAR HEMOGLOBIN 29.8 pg (27.5-34.5); MEAN CORPUSCULAR HGB CONC 31.8 g/dL (33.2-36.2); MEAN CORPUSCULAR VOLUME 93.9 fL (81-97); MEAN PLATELET VOLUME 10.2 fL (7.4-10.4); PLATELET COUNT 212 x10^3/uL (130-400); RED BLOOD COUNT 2.83 x10^6/uL (4.38-5.82)
[2018-07-22 05:50] LABS: ALBUMIN 2.5 g/dL (3.4-5.0); ANION GAP 7 mmol/L (5-15); CALCIUM 8.3 mg/dL (8.5-10.1); CHLORIDE 114 mmol/L (98-107)
[2018-07-22 05:53] LABS: ALANINE AMINOTRANSFERASE 65 U/L (12-78); ALKALINE PHOSPHATASE 85 U/L (45-117); BILIRUBIN,TOTAL 0.7 mg/dL (0.2-1.0); CREATININE 2.18 mg/dL (0.7-1.3); TOTAL PROTEIN 5.6 g/dL (6.4-8.2)
[2018-07-22 05:57] LABS: MD YES
[2018-07-22 06:00] LABS: EOS#(MANUAL) 0.18 x10^3/uL (0.0-0.4); EOS% (MANUAL) 5 % (1-7); LYMPH#(MANUAL) 0.74 x10^3/uL (1-3.4); LYMPHS% (MANUAL) 21 % (22-44); MONOS#(MANUAL) 0.35 x10^3/uL (0.3-2.7); MONOS% (MANUAL) 10 % (2-9); SEG#(MANUAL) 2.24 x10^3/uL (1.8-6.8); SEGS% (MANUAL) 64 % (42-75)
[2018-07-22 06:01] LABS: ANISOCYTOSIS 1+; TARGET CELLS 1+
[2018-07-22 06:02] LABS: HYPOCHROMIA 1+; OVALOCYTES 1+
[2018-07-22 06:03] LABS: <PLATELET ESTIMATE> ADEQUATE; <PLT MORPHOLOGY> NORMAL PLT MORPH
[2018-07-22] MEDS: INSULIN LISPRO 100 UNITS/ML, PEN SQ-INSULIN SCH ×4 (07:00→21:00)
[2018-07-22 07:56] VITALS: BP 135/74
[2018-07-22] MEDS: ASPIRIN 81 MG TABLET CHEW PO SCH ×2 (09:17→21:54)
[2018-07-22] MEDS: SODIUM BICARBONATE 650 MG TABLET PO SCH ×2 (09:18→21:54)
[2018-07-22] MEDS: PRAVASTATIN 40 MG TABLET PO SCH (09:18)
[2018-07-22] MEDS: MULTIVITAMIN 1 TABLET PO SCH (09:18)
[2018-07-22] MEDS: FINASTERIDE 5 MG TABLET PO SCH (09:18)
[2018-07-22] MEDS: FOLIC ACID 1 MG TABLET PO SCH (09:18)
[2018-07-22] MEDS: THIAMINE 100MG TABLET PO SCH (09:18)
[2018-07-22] MEDS: AMLODIPINE 5 MG TABLET PO SCH ×2 (09:18→21:54)
[2018-07-22] MEDS: TERAZOSIN 5MG CAPSULE PO SCH (09:18)
[2018-07-22] MEDS: CARVEDILOL 3.125 MG TABLET PO SCH ×2 (09:19→21:54)
[2018-07-22 15:49] VITALS: BP 123/74
[2018-07-22 20:28] VITALS: BP 152/74
[2018-07-23 00:30] VITALS: BP 141/53
[2018-07-23] MEDS: HEPARIN 5,000 UNITS/ML, 1ML SQ SCH (05:30)
[2018-07-23] MEDS: SODIUM CHLORIDE 0.9% 1,000 ML IV SCH (05:30)
[2018-07-23] MEDS: NYSTATIN TOPICAL POWDER 15GM TP SCH ×2 (05:30→11:00)
[2018-07-23 06:51] VITALS: BP 124/68
[2018-07-23] MEDS: INSULIN LISPRO 100 UNITS/ML, PEN SQ-INSULIN SCH ×2 (07:00→11:00)
[2018-07-23] MEDS: PRAVASTATIN 40 MG TABLET PO SCH (10:36)
[2018-07-23] MEDS: THIAMINE 100MG TABLET PO SCH (10:36)
[2018-07-23] MEDS: FOLIC ACID 1 MG TABLET PO SCH (10:36)
[2018-07-23] MEDS: FINASTERIDE 5 MG TABLET PO SCH (10:36)
[2018-07-23] MEDS: SODIUM BICARBONATE 650 MG TABLET PO SCH (10:36)
[2018-07-23] MEDS: ASPIRIN 81 MG TABLET CHEW PO SCH (10:37)
[2018-07-23] MEDS: MULTIVITAMIN 1 TABLET PO SCH (10:37)
[2018-07-23] MEDS: AMLODIPINE 5 MG TABLET PO SCH (10:37)
[2018-07-23] MEDS: TERAZOSIN 5MG CAPSULE PO SCH (10:37)
[2018-07-23] MEDS: CARVEDILOL 3.125 MG TABLET PO SCH (10:37)
[2018-07-23] MEDS ORDERED: NYST60PO TP (10:52)
[2018-07-23 13:20] VITALS: BP 132/77
== END 2018-07-23 14:35 | disposition home health service (06) | DRG 683 ==
LOC: ED 14:10 → EDIP 14:33 → 3NE 17:16
PROVIDERS: ADMIT Family Medicine; ATTEND Family Medicine
DX: N17.0 Acute kidney failure with tubular necrosis (principal); I13.0 Hypertensive heart and chronic kidney disease with heart failure and stage 1 through stage 4 chronic kidney disease, or unspecified chronic kidney disease; D68.69 Other thrombophilia; I50.32 Chronic diastolic (congestive) heart failure; Q24.0 Dextrocardia; N18.4 Chronic kidney disease, stage 4 (severe); B37.2 Candidiasis of skin and nail; F10.10 Alcohol abuse, uncomplicated; E11.22 Type 2 diabetes mellitus with diabetic chronic kidney disease; Z79.84 Long term (current) use of oral hypoglycemic drugs; D64.9 Anemia, unspecified; E78.5 Hyperlipidemia, unspecified; I48.91 Unspecified atrial fibrillation; N40.0 Benign prostatic hyperplasia without lower urinary tract symptoms; M10.9 Gout, unspecified; R53.81 Other malaise; R29.6 Repeated falls; Z86.73 Personal history of transient ischemic attack (TIA), and cerebral infarction without residual deficits; Z99.3 Dependence on wheelchair
CPT/HCPCS: 36415; 71045; 76770; 80053; 81003; 82436; 82570; 82728; 82962; 83036; 83540; 83550; 83605; 83735; 84100; 84133; 84145; 84156; 84300; 84443; 84466; 85025; 85610; 85730; 87040; 87324; 90715; 93005; G0378; J1644; J3475; J7030; J7040

== ENCOUNTER 2019-01-28 12:53 | Observation (INO) | payer MEDICARE ==
[~2019-01-28] VITALS: Ht 165.1 cm; Wt 117.8 kg
[2019-01-30 13:41] VITALS: BP 156/86
== END 2019-01-30 17:31 | disposition home or self-care (01) ==
LOC: EDBD 12:53 → ED 16:03 → INTOOBSV 16:04 → EDIP 16:04 → UNDOADMOB 16:04 → 4WST 16:10 → ED 16:45 → 4WST 18:07 → EDIP 18:07 → DCLOUNGE 01-30 16:25 → 4WST 01-30 17:31
PROVIDERS: ADMIT Internal Medicine; ATTEND Internal Medicine
DX: I95.9 Hypotension, unspecified (principal); E86.0 Dehydration; I13.0 Hypertensive heart and chronic kidney disease with heart failure and stage 1 through stage 4 chronic kidney disease, or unspecified chronic kidney disease; E11.22 Type 2 diabetes mellitus with diabetic chronic kidney disease; I50.32 Chronic diastolic (congestive) heart failure; N18.4 Chronic kidney disease, stage 4 (severe); D68.59 Other primary thrombophilia; M10.9 Gout, unspecified; N40.1 Benign prostatic hyperplasia with lower urinary tract symptoms; I35.8 Other nonrheumatic aortic valve disorders; I37.1 Nonrheumatic pulmonary valve insufficiency; E78.5 Hyperlipidemia, unspecified; D63.1 Anemia in chronic kidney disease; I27.20 Pulmonary hypertension, unspecified; I48.2 Chronic atrial fibrillation; J98.11 Atelectasis; E66.01 Morbid (severe) obesity due to excess calories; Z87.891 Personal history of nicotine dependence; Z86.73 Personal history of transient ischemic attack (TIA), and cerebral infarction without residual deficits; Z99.3 Dependence on wheelchair
CPT/HCPCS: 36415; 71045; 71250; 80048; 80053; 81003; 82607; 83880; 84443; 84484; 85025; 93005; 93306; 96360; 96361; 96372; 97162; 97166; 99284; G0378; J1644; J7030

== ENCOUNTER 2019-05-17 23:22 | Emergency (ER) | payer MEDICARE ==
[~2019-05-17] VITALS: Ht 167.6 cm; Wt 120.0 kg
[~2019-05-17 23:22] MED LIST changes: -EZET10TA18 PO; +EZET10TA70 PO; +NYST60PO TP
[2019-05-17 23:29] VITALS: BP 155/66
--- NOTE | 2019-05-17 23:37 | NUR ---
pt co left knee pain s/p twisting knee getting into car
== END 2019-05-18 01:03 | disposition home or self-care (01) ==
LOC: ED 05-18 00:57
DX: G89.11 Acute pain due to trauma (principal); M25.562 Pain in left knee; E11.9 Type 2 diabetes mellitus without complications; I48.91 Unspecified atrial fibrillation; I11.0 Hypertensive heart disease with heart failure; I50.9 Heart failure, unspecified; M19.90 Unspecified osteoarthritis, unspecified site; Z86.73 Personal history of transient ischemic attack (TIA), and cerebral infarction without residual deficits; W01.0XXA Fall on same level from slipping, tripping and stumbling without subsequent striking against object, initial encounter; Y93.89 Activity, other specified; Y92.89 Other specified places as the place of occurrence of the external cause; Y99.8 Other external cause status
CPT/HCPCS: 99283

== ENCOUNTER 2019-09-23 07:27 | Outpatient (CLI) | payer MEDICARE ==
[~2019-09-23 07:27] MED LIST changes: +CLON0.3T PO; -CLON0.3T47 PO
[2019-09-23] MEDS ORDERED: REGADENOSON 0.4 MG/5 ML SYRINGE ONE (08:10)
== END 2019-09-23 23:59 | disposition home or self-care (01) ==
LOC: RAD 07:27
PROVIDERS: ATTEND Internal Medicine Cardiovascular Disease
DX: Z01.810 Encounter for preprocedural cardiovascular examination (principal); I10 Essential (primary) hypertension
CPT/HCPCS: 78452; 93017; A9502; J2785

== ENCOUNTER 2019-10-15 12:40 | Emergency (ER) | payer MEDICARE ==
[~2019-10-15] VITALS: Ht 167.6 cm; Wt 122.0 kg
--- NOTE | 2019-10-15 12:55 | NUR ---
BIB [facility], PT WITH C/O LUE PAIN BEGINNING YESTERDAY. DENIES TRAUMA. PT WITH NOTED SWELLING TO LUE. PT WITH NO C/O SOB/CP. PT TO ALL MONITORS, ERMD IN TO EVAL PT AT THIS TIME
[2019-10-15] MEDS ORDERED: SODIUM CHLORIDE 0.9% 1,000ML IVBOLUS ONE (13:00)
[2019-10-15] MEDS ORDERED: SODIUM CHLORIDE FLUSH 10ML SYR IVF ONE (13:00)
[2019-10-15] MEDS ORDERED: MORPHINE SULFATE 4 MG/ML, 1ML IVPush PRN (13:00)
[2019-10-15] MEDS ORDERED: MORPHINE SULFATE 4 MG/ML, 1ML ONE (13:09)
[2019-10-15 13:23] LABS: ALANINE AMINOTRANSFERASE 30 U/L (12-78); ALBUMIN 3.3 g/dL (3.4-5.0); ANION GAP 13 mmol/L (5-15); CALCIUM 9.7 mg/dL (8.5-10.1); CHLORIDE 105 mmol/L (98-107); CREATININE 2.98 mg/dL (0.7-1.3)
[2019-10-15 13:25] LABS: ALKALINE PHOSPHATASE 82 U/L (45-117); BILIRUBIN,TOTAL 0.6 mg/dL (0.2-1.0); TOTAL PROTEIN 8.5 g/dL (6.4-8.2)
[2019-10-15 13:34] LABS: MEAN CORPUSCULAR HEMOGLOBIN 27.4 pg (27.5-34.5); MEAN CORPUSCULAR HGB CONC 32.2 g/dL (33.2-36.2); MEAN CORPUSCULAR VOLUME 85.1 fL (81-97); MEAN PLATELET VOLUME 8.2 fL (7.4-10.4); PLATELET COUNT 343 x10^3/uL (130-400); RED BLOOD COUNT 3.84 x10^6/uL (4.38-5.82); RED CELL DISTRIBUTION WIDTH 17.6 % (9.4-14.8)
--- NOTE | 2019-10-15 13:41 | NUR ---
THERESE US COMPLETED, PIV INITIATED, PT MEDICATED PER MAR
[2019-10-15 13:49] LABS: MD YES
[2019-10-15 13:50] LABS: EOS#(MANUAL) 0.22 x10^3/uL (0.0-0.4); EOS% (MANUAL) 2 % (1-7); LYMPH#(MANUAL) 1.22 x10^3/uL (1-3.4); LYMPHS% (MANUAL) 11 % (22-44); MONOS#(MANUAL) 0.56 x10^3/uL (0.3-2.7); MONOS% (MANUAL) 5 % (2-9); SEGS% (MANUAL) 82 % (42-75)
[2019-10-15 13:51] LABS: ANISOCYTOSIS 1+; HYPOCHROMIA 1+; OVALOCYTES 1+
[2019-10-15 13:52] LABS: <PLATELET ESTIMATE> ADEQUATE; <PLT MORPHOLOGY> NORMAL PLT MORPH; POLYCHROMASIA 1+
--- NOTE | 2019-10-15 14:55 | NUR ---
THIS TECH HELPED PT W/ URINAL
[2019-10-15 15:20] VITALS: BP 124/65
== END 2019-10-15 15:27 | disposition home or self-care (01) ==
LOC: ED 13:20
DX: M10.9 Gout, unspecified (principal); I12.9 Hypertensive chronic kidney disease with stage 1 through stage 4 chronic kidney disease, or unspecified chronic kidney disease; N18.9 Chronic kidney disease, unspecified; I48.91 Unspecified atrial fibrillation; M19.90 Unspecified osteoarthritis, unspecified site; E11.9 Type 2 diabetes mellitus without complications; Z86.73 Personal history of transient ischemic attack (TIA), and cerebral infarction without residual deficits
CPT/HCPCS: 36415; 80053; 84550; 85025; 93971; 96374; 99284; J2270; J7030

== ENCOUNTER 2020-02-29 09:07 | Emergency (ER) | payer MEDICARE ==
[~2020-02-29] VITALS: Ht 172.7 cm; Wt 102.3 kg
[2020-02-29 09:13] VITALS: BP 134/86
--- NOTE | 2020-02-29 09:21 | NUR ---
BREAK RN: [facility] FROM HOME. C/O LEFT LATERAL NECK PAIN X 3 DAYS. MUCH WORSE THIS MORNING. PT UNABLE TO ROTATE HEAD SIDE TO SIDE 2/2 PAIN. PT WAS ABLE TO AMBULATE WITH STANDBY ASSIST FROM EMS GURS[facility]ERS[facility] TO ED GURSOMERSET. SHUFFLE GAIT. ALL MONITORS PLACED, VSS. ED PROVIDER AT BEDSIDE.
--- NOTE | 2020-02-29 09:23 | NUR ---
BREAK RN: PTS DAUGHTER AT BEDSIDE. ED PROVIDER REVIEWED PT ASSESSMENT AND POC.
--- NOTE | 2020-02-29 09:47 | NUR ---
phlebotomy is at the bedside for blood sampling
--- NOTE | 2020-02-29 09:50 | NUR ---
PT TO CT W TECH
[2020-02-29 10:03] LABS: ALANINE AMINOTRANSFERASE 15 U/L (12-78); ANION GAP 10 mmol/L (5-15); CALCIUM 9.5 mg/dL (8.5-10.1); CHLORIDE 112 mmol/L (98-107); CREATININE 2.82 mg/dL (0.7-1.3)
[2020-02-29 10:04] LABS: MEAN CORPUSCULAR HEMOGLOBIN 26.7 pg (27.5-34.5); MEAN CORPUSCULAR HGB CONC 31.3 g/dL (33.2-36.2); MEAN CORPUSCULAR VOLUME 85.3 fL (81-97); MEAN PLATELET VOLUME 8.5 fL (7.4-10.4); PLATELET COUNT 336 x10^3/uL (130-400); RED BLOOD COUNT 4.06 x10^6/uL (4.38-5.82); RED CELL DISTRIBUTION WIDTH 17.7 % (9.4-14.8)
[2020-02-29 10:07] LABS: ALKALINE PHOSPHATASE 72 U/L (45-117); BILIRUBIN,TOTAL 0.4 mg/dL (0.2-1.0); TOTAL PROTEIN 8.1 g/dL (6.4-8.2); TROPONIN I < 0.015 ng/mL (0.000-0.045)
[2020-02-29 10:29] LABS: MD YES
[2020-02-29 10:30] LABS: <PLATELET ESTIMATE> ADEQUATE; <PLT MORPHOLOGY> NORMAL PLT MORPH; ANISOCYTOSIS 1+; EOS#(MANUAL) 0.09 x10^3/uL (0.0-0.4); EOS% (MANUAL) 1 % (1-7); LYMPH#(MANUAL) 1.13 x10^3/uL (1-3.4); LYMPHS% (MANUAL) 12 % (22-44); MONOS#(MANUAL) 0.38 x10^3/uL (0.3-2.7); MONOS% (MANUAL) 4 % (2-9); POLYCHROMASIA 1+; SEGS% (MANUAL) 83 % (42-75)
[2020-02-29 10:32] LABS: HYPOCHROMIA 1+; OVALOCYTES 1+
--- NOTE | 2020-02-29 10:55 | NUR ---
ekg at the bedside
[2020-02-29] MEDS ORDERED: BUPIVACAINE/PF 0.5% INFIL ONE (11:00)
[2020-02-29] MEDS ORDERED: CYCLOBENZAPRINE 10 MG TABLET PO ONE (11:00)
[2020-02-29] MEDS ORDERED: CYCLOBENZAPRINE 10 MG TABLET ONE (11:04)
--- NOTE | 2020-02-29 11:15 | NUR ---
positioning adjusted for comfort. pt is awaiting injection from erp.
[2020-02-29] MEDS ORDERED: BUPIVACAINE/PF 0.5% ONE (11:40)
--- NOTE | 2020-02-29 11:46 | NUR ---
pt urinated in a urinal. he is awaiting an md to inject local anesthetic.
== END 2020-02-29 13:12 | disposition home or self-care (01) ==
LOC: ED 10:08
DX: S16.1XXA Strain of muscle, fascia and tendon at neck level, initial encounter (principal); M47.812 Spondylosis without myelopathy or radiculopathy, cervical region; R51 Headache; H57.89 Other specified disorders of eye and adnexa; R94.31 Abnormal electrocardiogram [ECG] [EKG]; I11.0 Hypertensive heart disease with heart failure; E11.9 Type 2 diabetes mellitus without complications; I50.9 Heart failure, unspecified; Z86.73 Personal history of transient ischemic attack (TIA), and cerebral infarction without residual deficits; X58.XXXA Exposure to other specified factors, initial encounter; Y93.89 Activity, other specified; Y92.89 Other specified places as the place of occurrence of the external cause; Y99.8 Other external cause status
CPT/HCPCS: 36415; 64405; 70450; 70490; 80053; 84484; 85025; 93005; 99285